=== PATIENT | male | born 1955 | race Caucasian/White ===

== ENCOUNTER 2021-03-13 13:53 | Emergency (ER) | payer MEDICARE, OTHER ==
[~2021-03-13] VITALS: Ht 172.7 cm; Wt 86.2 kg
--- NOTE | 2021-03-13 14:05 | NUR ---
Patient brought in by [facility] for the inability to urinated and leg pain, patient is alert and has vitals WNLs
[2021-03-13] MEDS ORDERED: LIDOCAINE 2% (UROJET) 10 ML JELLY MM ONE (14:15)
--- NOTE | 2021-03-13 14:22 | NUR ---
TEXTED DR. SMITH FOR MRI APPROVAL.
[2021-03-13 14:28] LABS: HEMATOCRIT 48.3 % (36.7-47.1); MEAN CORPUSCULAR HEMOGLOBIN 32.7 uug (23.8-33.4); MEAN CORPUSCULAR VOLUME 96.2 fL (73.0-96.2); PLATELET COUNT (AUTO) 191 K/uL (152-348)
[2021-03-13 14:32] LABS: POTASSIUM 4.1 mmol/L (3.5-5.1)
[2021-03-13 14:38] LABS: BILIRUBIN,DIRECT 0.2 mg/dL (0.0-0.2); BILIRUBIN,TOTAL 0.5 mg/dL (0.2-1.0); TOTAL PROTEIN, SERUM 7.1 g/dL (6.4-8.2)
--- NOTE | 2021-03-13 14:39 | NUR ---
Patient being arranged for MRI at [facility] at this time
[2021-03-13 14:42] LABS: *BILIRUBIN,URIN NEGATIVE (NEGATIVE); *BLOOD, URINE TRACE LYSED (NEGATIVE); *CLARITY,URINE CLEAR (CLEAR); *COLOR,URINE YELLOW (YELLOW); *KETONES,URINE NEGATIVE (NEGATIVE); *UROBILINOGEN,URINE 0.2 E.U./dl (NORMAL); LEUKOCYTE ESTERASE ,URINE NEGATIVE (NEGATIVE); NITRITE, URINE NEGATIVE (NEGATIVE); UGLUCOSE NEGATIVE (NEGATIVE)
[2021-03-13] MEDS ORDERED: ONDANSETRON 4 MG/2 ML VIAL IV ONE (16:30)
[2021-03-13] MEDS ORDERED: MORPHINE SULFATE 4 MG/1 ML DISP.SYRIN IV ONE ×2 (16:30→20:15)
[2021-03-13] MEDS ORDERED: MORPHINE SULFATE 4 MG/1 ML DISP.SYRIN ONE ×2 (16:33→20:36)
[2021-03-13] MEDS ORDERED: ONDANSETRON 4 MG/2 ML VIAL ONE (16:33)
--- NOTE | 2021-03-13 16:55 | NUR ---
Patient being picked up for transport to [facility] for MRI of spine. No signs of distress noted
--- NOTE | 2021-03-13 19:03 | NUR ---
Patient returned from [facility] for MRI of spine
[2021-03-13] MEDS ORDERED: DEXAMETHASONE SOD PHOSPHATE 4 MG INJ IV ONE (19:15)
[2021-03-13] MEDS ORDERED: DEXAMETHASONE SOD PHOSPHATE 10 MG INJ ONE (19:24)
--- NOTE | 2021-03-13 19:30 | NUR ---
Report recieved from JILLIAN Liz. Pt. resting comfortably in bed with eyes closed. Denies any new symptoms. Will continue to monitor.
[2021-03-13] MEDS ORDERED: IV NORMAL SALINE 1000 ML BAG IV ONE (20:15)
--- NOTE | 2021-03-13 20:17 | NUR ---
Intake from [facility] recieved pt. information, waiting to hear back on if pt. can be transferred.
--- NOTE | 2021-03-13 20:23 | NUR ---
pumping supervisor for [facility] called to get updated information on pt, they are working on getting a bed for the pt. there and will call us back.
[2021-03-13] MEDS ORDERED: MORPHINE SULFATE 2 MG/1 ML DISP.SYRIN ONE (20:36)
--- NOTE | 2021-03-13 20:59 | NUR ---
Abdoulaye from [facility] called back with transfer info. Patient will be going to [facility] room 1213 Bed 1. 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
--- NOTE | 2021-03-13 21:18 | NUR ---
Pt urinated 400c yellow urine.
--- NOTE | 2021-03-13 21:25 | NUR ---
Gave report to JILLIAN Romero.
--- NOTE | 2021-03-13 21:41 | NUR ---
Pt. picked up by ambulance to be transferred. Chart and imaging reports sent w/ pt. No copy of MRI CD present because MRI was done at [facility]. JILLIAN Romero from [facility].
== END 2021-03-13 21:29 | disposition short-term general hospital (02) ==
LOC: ER 13:54
DX: M51.06 Intervertebral disc disorders with myelopathy, lumbar region (principal); K59.89 Other specified functional intestinal disorders; G83.4 Cauda equina syndrome; Z20.822 Contact with and (suspected) exposure to COVID-19; R32 Unspecified urinary incontinence; I25.2 Old myocardial infarction; Z82.49 Family history of ischemic heart disease and other diseases of the circulatory system; E86.0 Dehydration; G89.29 Other chronic pain; Z86.74 Personal history of sudden cardiac arrest; Z95.0 Presence of cardiac pacemaker
CPT/HCPCS: 36415; 72158; 80048; 80076; 81003; 85025; 85730; 87426; 93005; 96374; 96375; 96376; 99285; J1100; J2270 ×3; J2405; A4663; J7030